=== PATIENT | male | born 1945 | race Caucasian/White ===

== ENCOUNTER 2019-12-27 15:51 | Emergency (ER) | payer SELFPAY ==
[2019-12-27 16:24] VITALS: BP 132/86; PULSE 74; RESP 20; TEMP 36.6; O2SAT 95; BMI 21.9
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
[2019-12-27 18:28] VITALS: BP 161/95; PULSE 70; RESP 16; TEMP 36.9; O2SAT 95
== END 2019-12-27 18:15 | disposition home or self-care (01) ==
PROVIDERS: Emergency Provider Family Medicine
DX: S22.31XA Fracture of one rib, right side, initial encounter for closed fracture (principal); V49.9XXA Car occupant (driver) (passenger) injured in unspecified traffic accident, initial encounter; F17.210 Nicotine dependence, cigarettes, uncomplicated
CPT/HCPCS: 71101; 99281; 99282